=== PATIENT | male | born 1940 | race Two or more races ===

== ENCOUNTER 2021-10-05 10:38 | Emergency (ER) | payer MEDICARE, OTHER ==
[~2021-10-05] VITALS: Ht 165.1 cm; Wt 63.0 kg
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
[2021-10-05] MEDS ORDERED: oxyCODONE/APAP (5/325 MG) 1 UDTAB TABLET ONE (11:06)
[2021-10-05] MEDS ORDERED: IBUPROFEN 600 MG TABLET ONE (11:06)
[2021-10-05] MEDS ORDERED: oxyCODONE/APAP (5/325 MG) 1 UDTAB TABLET PO ONE (11:30)
[2021-10-05] MEDS ORDERED: IBUPROFEN 600 MG TABLET PO ONE (11:30)
[2021-10-05] MEDS ORDERED: OXYC-128 PO (12:38)
[2021-10-05 12:50] VITALS: BP 134/88
--- NOTE | 2021-10-05 12:51 | NUR ---
Patient discharged to home in stable condition. Written and verbal after care instructions given. Patient verbalizes understanding of instruction.
== END 2021-10-05 12:51 | disposition home or self-care (01) ==
LOC: ER 10:43
DX: S80.02XA Contusion of left knee, initial encounter (principal); M25.511 Pain in right shoulder; R07.89 Other chest pain; V49.69XA Unspecified car occupant injured in collision with other motor vehicles in traffic accident, initial encounter; Y93.89 Activity, other specified; Y92.413 State road as the place of occurrence of the external cause; Y99.8 Other external cause status
CPT/HCPCS: 71045-TC; 73030-TC; 73564-TC

== ENCOUNTER 2022-05-12 14:20 | Emergency (ER) | payer MEDICARE, OTHER ==
[~2022-05-12] VITALS: Ht 162.6 cm; Wt 59.0 kg
[~2022-05-12 14:20] MED LIST: OXYC-128 PO
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
[2022-05-12] MEDS ORDERED: ACETAMINOPHEN 325 MG TABLET PO ONE (15:30)
[2022-05-12] MEDS ORDERED: ACETAMINOPHEN 325 MG TABLET ONE (16:24)
--- NOTE | 2022-05-12 21:05 | NUR ---
Patient discharged to home in stable condition. Written and verbal after care instructions given. Patient verbalizes understanding of instruction.
[2022-05-12 21:06] VITALS: BP 153/66
== END 2022-05-12 21:06 | disposition home or self-care (01) ==
LOC: ER 14:23
DX: S00.12XA Contusion of left eyelid and periocular area, initial encounter (principal); H11.32 Conjunctival hemorrhage, left eye; N18.6 End stage renal disease; Z79.899 Other long term (current) drug therapy; Y04.2XXA Assault by strike against or bumped into by another person, initial encounter; Y93.89 Activity, other specified; Y92.89 Other specified places as the place of occurrence of the external cause; Y99.8 Other external cause status
CPT/HCPCS: 70450-TC; 71045-TC; 72125-TC; 72170-TC; 73564-TC

== ENCOUNTER 2024-02-07 18:16 | Emergency (ER) | payer MEDICARE, OTHER ==
[~2024-02-07] VITALS: Ht 160 cm; Wt 56.2 kg
[2024-02-07 19:37] VITALS: BP 157/52; TEMP 97.7; O2SAT 96
== END 2024-02-07 19:38 | disposition home or self-care (01) ==
LOC: ER 18:20
DX: T82.898A Other specified complication of vascular prosthetic devices, implants and grafts, initial encounter (principal); I12.0 Hypertensive chronic kidney disease with stage 5 chronic kidney disease or end stage renal disease; N18.6 End stage renal disease; Z86.79 Personal history of other diseases of the circulatory system; Y84.8 Other medical procedures as the cause of abnormal reaction of the patient, or of later complication, without mention of misadventure at the time of the procedure; Y92.89 Other specified places as the place of occurrence of the external cause
CPT/HCPCS: 99281; A6403

== ENCOUNTER 2024-09-14 05:06 | Inpatient (IN) | payer MEDICARE, OTHER ==
[~2024-09-14] VITALS: Ht 152.4 cm; Wt 49.9 kg
[2024-09-14] VITALS (38 sets, daily range): BP systolic 105–184; BP diastolic 33–117; TEMP 97.3–99.2; O2SAT 92–100
[2024-09-14] MEDS: ALBUTEROL FS 2.5 MG/3 ML VIAL.NEB NEB ONE (05:27)
[2024-09-14] MEDS ORDERED: SODIUM ZIRCONIUM CYCLOSILICATE 10 GM POWD.PACK ONE (05:28)
[2024-09-14] MEDS ORDERED: ALBUTEROL FS 2.5 MG/3 ML VIAL.NEB ONE (05:28)
[2024-09-14] MEDS: SODIUM ZIRCONIUM CYCLOSILICATE 10 GM POWD.PACK PO ONE ×2 (05:31→20:50)
[2024-09-14 05:33] LABS: PLATELET COUNT (AUTO) 96 K/uL (150-450); RED BLOOD CELL COUNT(AUTO) 3.85 MIL/uL (4.5-6.0); RED CELL DISTRIBUTION WIDTH 13.9 % (11.5-15.0); WHITE BLOOD COUNT (AUTO) 9.0 K/uL (4.3-11.0)
[2024-09-14 05:48] LABS: CALCIUM, SERUM 10.1 mg/dL (8.5-10.1); SODIUM SERUM 134 mmol/L (136-145); UREA NITROGEN, BLOOD 71 mg/dL (7-18)
[2024-09-14 05:50] LABS: CREATININE 8.5 mg/dL (0.6-1.3); INR 1.04 (0.91-1.10)
[2024-09-14 05:54] LABS: ASPARTATE AMINOTRANSFERASE 27 U/L (15-37); TOTAL PROTEIN, SERUM 7.9 g/dL (6.4-8.2)
[2024-09-14 05:55] LABS: PHOSPHORUS 7.2 mg/dL (2.5-4.9)
[2024-09-14 05:58] LABS: BAND % (MANUAL) 2 % (0.0-5.0); BASOPHILS % (MANUAL) 0 % (0.0-2.0); EOSINOPHILS % (MANUAL) 0 % (0-4); LYMPHOCYTES % (MANUAL) 10 % (16-48); MONOCYTES % (MANUAL) 9 % (0-11.0); NEUTROPHILS % (MANUAL) 79 (42-76); PLATELET ESTIMATE DECREASED
[2024-09-14] MEDS: DEXTROSE 50%-WATER 50 ML DISP.SYRIN IV ONE (06:03)
[2024-09-14] MEDS: INSULIN REGULAR, HUMAN 100 UNIT/ML 10 ML VIAL IV ONE (06:03)
[2024-09-14] MEDS ORDERED: ZOLPIDEM TARTRATE 5 MG TABLET PO PRN (07:00)
[2024-09-14] MEDS ORDERED: MAGNESIUM HYDROXIDE 30 ML UDC PO PRN (07:00)
[2024-09-14] MEDS ORDERED: ONDANSETRON HCL/PF 4 MG/2 ML VIAL IVP PRN (07:00)
[2024-09-14] MEDS ORDERED: Z GUARD REMEDY 4 OZ OINT TP PRN (07:00)
[2024-09-14] MEDS ORDERED: MAG HYDROX/AL HYDROX/SIMETH 30 ML UDC PO PRN (07:00)
[2024-09-14] MEDS: PANTOPRAZOLE 40 MG TABLET.DR PO SCH (08:26)
[2024-09-14 09:06] LABS: CALCIUM, SERUM 9.8 mg/dL (8.5-10.1); UREA NITROGEN, BLOOD 74 mg/dL (7-18)
[2024-09-14 09:11] LABS: SODIUM SERUM 134 mmol/L (136-145)
[2024-09-14 09:20] LABS: CREATININE 9.2 mg/dL (0.6-1.3)
[2024-09-14] MEDS ORDERED: *INSULIN REGULAR(HUMULIN R)HUM 100 UNIT/ML VIAL SQ PRN (13:00)
[2024-09-14] MEDS ORDERED: DEXTROSE 50%-WATER 50 ML DISP.SYRIN IV PRN (13:00)
[2024-09-14] MEDS: LORAZEPAM INJ 2 MG/ML VIAL IV ONE ×2 (16:05→22:42)
[2024-09-14] MEDS: BLOOD SUGAR DIAGNOSTIC 1 EACH STRIP VI SCH (17:46)
[2024-09-14 18:39] LABS: CALCIUM, SERUM 9.4 mg/dL (8.5-10.1); CREATININE 5.6 mg/dL (0.6-1.3); SODIUM SERUM 137.0 mmol/L (136-145); UREA NITROGEN, BLOOD 39.0 mg/dL (7-18)
[2024-09-15] VITALS (43 sets, daily range): BP systolic 110–152; BP diastolic 25–118; TEMP 97.5–99.2; O2SAT 91–100
[2024-09-15 04:38] LABS: PLATELET COUNT (AUTO) 94 K/uL (150-450); RED BLOOD CELL COUNT(AUTO) 3.46 MIL/uL (4.5-6.0); RED CELL DISTRIBUTION WIDTH 13.7 % (11.5-15.0); WHITE BLOOD COUNT (AUTO) 6.5 K/uL (4.3-11.0)
[2024-09-15 05:23] LABS: CALCIUM, SERUM 8.9 mg/dL (8.5-10.1); CREATININE 3.8 mg/dL (0.6-1.3); PHOSPHORUS 4.2 mg/dL (2.5-4.9); SODIUM SERUM 140.0 mmol/L (136-145); UREA NITROGEN, BLOOD 18.0 mg/dL (7-18)
[2024-09-15 06:08] LABS: BASOPHILS % (MANUAL) 0 % (0.0-2.0); EOSINOPHILS % (MANUAL) 2 % (0-4); LYMPHOCYTES % (MANUAL) 12 % (16-48); MONOCYTES % (MANUAL) 11 % (0-11.0); NEUTROPHILS % (MANUAL) 75 (42-76); PLATELET ESTIMATE DECREASED
[2024-09-15 22:06] LABS: HEPATITIS B CORE AB, TOTAL Positive (Negative); HEPATITIS B SURFACE AB (QUAL) Reactive (.)
[2024-09-16] VITALS (11 sets, daily range): BP systolic 132–168; BP diastolic 30–58; TEMP 97–98.2; O2SAT 98–100
[2024-09-16 08:42] LABS: ASPARTATE AMINOTRANSFERASE 30.0 U/L (15-37); CALCIUM, SERUM 8.7 mg/dL (8.5-10.1); CREATININE 5.7 mg/dL (0.6-1.3); SODIUM SERUM 137.0 mmol/L (136-145); TOTAL PROTEIN, SERUM 7.4 g/dL (6.4-8.2); UREA NITROGEN, BLOOD 47.0 mg/dL (7-18)
[2024-09-16] MEDS: INSULIN REGULAR, HUMAN 100 UNIT/ML 3 ML VIAL SQ PRN (11:14)
[2024-09-17] VITALS: BP 133/42; TEMP 97.9; O2SAT 97
[2024-09-17 04:00] VITALS: BP 166/35; TEMP 97.9; O2SAT 96
[2024-09-17] MEDS: ACETAMINOPHEN 325 MG TABLET PO PRN (11:06)
== END 2024-09-17 14:00 | disposition home health service (06) | DRG 640 ==
LOC: ER 05:07 → ICU 07:03 → TELE1 09-16 08:25
PROVIDERS: ADMIT Internal Medicine; ATTEND Internal Medicine
PROC: 5A1D70Z Performance of Urinary Filtration, Intermittent, Less than 6 Hours Per Day (ICD-10-PCS; principal; 2024-09-14)
DX: E87.5 Hyperkalemia (principal); N18.6 End stage renal disease; I12.0 Hypertensive chronic kidney disease with stage 5 chronic kidney disease or end stage renal disease; E11.22 Type 2 diabetes mellitus with diabetic chronic kidney disease; Z99.2 Dependence on renal dialysis; I48.91 Unspecified atrial fibrillation; D69.6 Thrombocytopenia, unspecified; E87.1 Hypo-osmolality and hyponatremia; D50.9 Iron deficiency anemia, unspecified; E83.41 Hypermagnesemia; Z91.199 Patient's noncompliance with other medical treatment and regimen due to unspecified reason; R00.1 Bradycardia, unspecified; I25.10 Atherosclerotic heart disease of native coronary artery without angina pectoris; Z95.1 Presence of aortocoronary bypass graft
CPT/HCPCS: 36415; 71045-TC; 80048-TC; 80053-TC; 80076-TC; 82962-TC; 83735-TC; 84100-TC; 84484-TC; 85027-TC; 85730-TC; 86704; 86706; 87081-TC; 87340; 90935-TC; 93307-TC; 97110-TC; 97116-TC; 97530-TC; A4223; A6403; G0378; J1815; J2060; J7030